=== PATIENT | female | born 1965 | race Caucasian/White ===

== ENCOUNTER 2018-02-21 17:29 | Emergency (ER) | payer MEDICAID ==
[~2018-02-21] VITALS: Ht 160 cm; Wt 116.1 kg
[2018-02-21 17:40] VITALS: Ht 160 cm; Wt 116.1 kg
[2018-02-21 20:14] VITALS: BP 144/80
== END 2018-02-21 20:14 | disposition home or self-care (01) ==
LOC: ED 17:29
DX: M25.511 Pain in right shoulder (principal); M25.521 Pain in right elbow; M25.561 Pain in right knee; E78.5 Hyperlipidemia, unspecified; E11.9 Type 2 diabetes mellitus without complications; I10 Essential (primary) hypertension
CPT/HCPCS: 90715; J1885

== ENCOUNTER 2018-05-25 12:59 | Emergency (ER) | payer MEDICAID ==
[2018-05-25 13:28] VITALS: Ht 162.6 cm
[2018-05-25 14:26] VITALS: BP 141/74
== END 2018-05-25 14:26 | disposition home or self-care (01) ==
LOC: ED 12:59
DX: T63.441A Toxic effect of venom of bees, accidental (unintentional), initial encounter (principal); I10 Essential (primary) hypertension; E11.9 Type 2 diabetes mellitus without complications; E78.00 Pure hypercholesterolemia, unspecified; Y92.89 Other specified places as the place of occurrence of the external cause
CPT/HCPCS: J0696; J1200